=== PATIENT | male | born 1985 | race Caucasian/White ===

== ENCOUNTER 2017-12-16 15:18 | Emergency (ER) | payer OTHER ==
[~2017-12-16] VITALS: Ht 190.5 cm; Wt 106.6 kg
[2017-12-16 16:49] VITALS: BP 130/67
== END 2017-12-16 16:50 | disposition home or self-care (01) ==
LOC: M.ERS 15:18
DX: S01.01XA Laceration without foreign body of scalp, initial encounter (principal); W45.8XXA Other foreign body or object entering through skin, initial encounter; Y93.89 Activity, other specified; Y92.89 Other specified places as the place of occurrence of the external cause; Y99.8 Other external cause status